=== PATIENT | female | born 1975 | race Caucasian/White ===

== ENCOUNTER 2017-10-14 12:25 | Emergency (ER) | payer BC, OTHER ==
--- NOTE | 2017-10-14 12:37 | PDOC ---
History of Present Illness - General Chief Complaint: Injury Stated Complaint: TWISTED RIGHT ANKLE Time Seen by Provider: 10/14/17 12:36 - History of Present Illness Initial Comments: 10/14/17 13:53 Chief complaint: Pain and swelling right ankle History of present illness: Patient twisted her ankle at work today, complains of pain and swelling lateral ankle, worse with weightbearing. She is having difficulty ambulating. Old sprains but no fractures Review of systems: No distal numbness tingling pain or weakness of the foot or toes. No pain in the knee. No other injuries including injuries to the head neck chest abdomen spine or pelvis or other extremities Past medical history: Healthy female, no active medical or surgical problems Social/family history reviewed and noncontributory Physical exam: Alert and oriented well-developed well-nourished no acute distress cheerful and cooperative Afebrile, vital signs normal No visible or palpable trauma to the head neck chest abdomen spine pelvis or other extremities. Right ankle: Swelling of the lateral ankle, moderate. Point tenderness lateral malleolus. No medial malleolus or fifth metatarsal tenderness or swelling. No deformity. Pulses full. No distal sensory or motor deficits. No instability Impression: Sprain, rule out fracture Plan: X-ray and further orthopedic management depending on results. Past History - Past Medical History Allergies/Adverse Reactions: Allergies Allergy/AdvReac Type Severity Reaction Status Date / Time No Known Allergies Allergy Unverified 10/14/17 12:27 Home Medications: Ambulatory Orders Ibuprofen [Motrin -] 600 mg PO TID #20 tablet 10/14/17 Medical Decision Making - Medical Decision Making 10/14/17 12:37 Patient states there is no chance of . Declines test X-ray: There is a questionable lucency oriented transversely, distal fibula. There is no cortical irregularity. This was discussed with the radiologist by phone. He does not think this is indicative of a fracture, but there is the possibility. These findings were discussed with the patient. It was recommended that it be treated like a fracture until further orthopedic evaluation, even though it may only be a severe sprain. She appears to understand and agree. Burt dressing, crutches were given. Partial weightbearing and orthopedic follow-up as directed 10/14/17 13:55 *DC/Admit/Observation/Transfer Diagnosis at time of Disposition: Ankle fracture Qualifiers: Encounter type: initial encounter Fracture type: closed Laterality: right Qualified Code(s): S82.891A - Other fracture of right lower leg, initial encounter for closed fracture - Discharge Dispostion Disposition: HOME Condition at time of disposition: Improved Admit: No - Prescriptions Prescriptions: Ibuprofen [Motrin -] 600 mg PO TID #20 tablet - Referrals - Patient Instructions Printed Discharge Instructions: DI for Ankle Fracture Additional Instructions: X-ray is suspicious for a minor hairline fracture of your distal fibula. This is not certain, however. If pain and swelling persist it will be necessary to see an cyber security specialist for further evaluation and treatment In the meantime, we are treating you for a presumed fracture in the usual manner. Your advised rest, elevation, ice, and Motrin. A padded, compression bandage was applied and crutches are recommended for partial weight bearing until further consultation with cyber security specialist as directed. - Post Discharge Activity Forms/Work/School Notes: Back to Work
[2017-10-14] MEDS ORDERED: IBUPROFEN 400 MG TABLET (FP) PO ONE ×2 (12:52)
[2017-10-14 12:59] VITALS: BP 117/77; PULSE 77; TEMP 97.8; BMI 27.4
== END 2017-10-14 14:18 | disposition home or self-care (01) ==
LOC: FER 12:25
DX: S82.891A Other fracture of right lower leg, initial encounter for closed fracture (principal); X58.XXXA Exposure to other specified factors, initial encounter; Y93.89 Activity, other specified; Y92.9 Unspecified place or not applicable; Y99.0 Civilian activity done for income or pay
CPT/HCPCS: 73610-TC-RT; 99281-25